=== PATIENT | female | born 1955 | race Caucasian/White ===

== ENCOUNTER → 2017-07-20 | Outpatient (CLI) | payer OTHER, BC ==
[~2017-07-20] MED LIST: ACYCLOVIR 200200 MG PO; ALLERGY25 M2 PO; ALPRAZOLAM 0.0.25 M1 PO; ASPIR 8181 M1 PO; ASPIRIN325 PO; B-121000 MCG IM; BACTRIM DS TAB1 EACH PO; BENADRYL25 MG PO; CLONAZEPAM 0.50.5 M1 PO; CLONAZEPAM 1 MG1 M1 PO; FAMCICLOVIR500 MG PO; FAMOTIDINE20 MG PO; FISH OIL 1,0001 EAC5 PO; FLEXERIL PO; FOLIC ACID1 MG PO; IBUPROFEN 600600 M1 PO; K-DUR10 ME1; K-DUR10 MEQ PO; KEPPRA 500 MG500 M1 PO; LAMOTRIGINE200 MG PO; LASIX 20 MG TAB20 MG PO; LEVOTHYROXIN0.088 MG PO; LEVOTHYROXIN0.125 M1 PO; LISINOPRIL5 MG PO; LOPRESSOR 12.12.5 MG PO; NIACIN 500 MG500 M1 PO; PERCOCET 5-3251 EACH PO; PLAVIX 75 MG TA75 M1 PO; POTASSIUM20 PO; PRILOSEC 20 MG20 MG PO; PRILOSEC40 MG PO; SERTRALINE HCL100 MG PO; TYLENOL325 MG PO; VENTOLIN HFA 1818 GM INH; VITAMIN D3400 UNI2 PO; XANAX 0.25 MG0.25 MG PO; XANAX 0.5 MG0.5 MG PO
== END ==
LOC: CAT 10:02
DX: R10.84 Generalized abdominal pain (principal)

== ENCOUNTER → 2017-09-13 | Outpatient (CLI) | payer OTHER, BC | LOC: EDSTATUS 08:37 → RAD 08:38 | DX: K44.9 Diaphragmatic hernia without obstruction or gangrene (principal) ==

== ENCOUNTER → 2019-09-14 | Outpatient (CLI) | payer OTHER, BC | LOC: RAD 11:20 | DX: M19.012 Primary osteoarthritis, left shoulder (principal) ==

== ENCOUNTER → 2020-02-07 | Outpatient (CLI) | payer OTHER, BC ==
[~2020-02-07] MED LIST changes: +DULOXETINE HCL30 MG PO; +IBUPROFEN200 M1 PO; +LEVO-T100 MCG PO
[2020-02-07 09:45] VITALS: BP 115/62
[2020-02-07 11:30] VITALS: BP 115/62; BP 117/60
--- NOTE | 2020-02-07 12:03 | NUR ---
IN FOR 1ST INJECTAFER INFUSION. STATED FEELING WELL. MAIN COMPLAINT IS FATIGUE. ADMISSION HISTORY AND ASSESSMENT COMPLETED. MEDICATIONS RECONCILED. TOLERATED INFUSION WITHOUT INCIDENT. OBSERVED FOR 30 MINUTES. POST VITAL SIGNS GOOD. REMOVED IV AND DISMISSED IN STABLE CONDITION.
== END ==
LOC: OPONC 09:08
DX: D50.9 Iron deficiency anemia, unspecified (principal)
CPT/HCPCS: 95000

== ENCOUNTER → 2020-02-14 | Outpatient (CLI) | payer OTHER, BC ==
[2020-02-14 10:30] VITALS: BP 95/53
[2020-02-14 10:46] VITALS: BP 95/57
--- NOTE | 2020-02-14 10:55 | NUR ---
PATIENT ARRIVED FOR INFUSION VIA WHEELCHAIR. ASSISTED TO TRANSFER TO THE RECLINER AND TOLERATED WELL. PIV STARTED AND INFUSION BEGAN WITHOUT DIFFICULTY.
[2020-02-14 11:00] VITALS: BP 105/50
[2020-02-14 11:15] VITALS: BP 105/50
--- NOTE | 2020-02-14 11:23 | NUR ---
RIGHT FOREARM #22 IV BECAME TENDER TO TOUCH AND UNABLE TO FLUSH. PIV REMOVED AND A NEW #24G STARTED IN THE BACK OF THE FOREARM. IV INFUSION RATE SLOWED TO 80CC/HR AT THIS TIME
[2020-02-14 12:00] VITALS: BP 100/50
--- NOTE | 2020-02-14 12:21 | NUR ---
INFUSION COMPLETE- PATIENT ASSISTED TO THE RESTROOM AND BACK
[2020-02-14 12:30] VITALS: BP 100/52
== END ==
LOC: OPONC 09:57
DX: D50.9 Iron deficiency anemia, unspecified (principal)
CPT/HCPCS: 95000

== ENCOUNTER 2020-12-26 11:28 | Emergency (ER) | payer OTHER, BC ==
[~2020-12-26] VITALS: Ht 165.1 cm; Wt 56.7 kg
--- NOTE | ~2020-12-26 | EMS ---
[facility] [address] [place] [address] EMS Patient Care Report Name: DAWSON MOSELEY Room #: PRE M.R.#: [id number] Admission: Attend Phys: Discharge: Date of : 59 Report #: [id number] THIS REPORT FOR: //name// Report Transmitted: 12/26/2020 11:19 EMS Care Summary [facility] MED-ACT Incident [id number] @ 12/26/2020 10:53 Incident Location [facility] [place] [address] Patient DAWSON MOSELEY Female, 65 Years 1955 Patient Address [address] [place] [address] Patient History Hypertension (HTN),Seizures,TIA,Neurological Condition - Other,Depression,Hypothyroidism, Patient Allergies Codeine,Morphine,Erythromycin,Tetracycline,Other drug allergy,Demerol,Valium, Patient Medications Cymbalta, Diphenhydramine, Gabapentin, Clopidogrel, Depakote, Acyclovir, Levothyroxine, Alprazolam, Cyclobenzaprine, Keppra, Chief Complaint "she had a seizure" Disposition Transported No Lights/[place] Dispatch Reason Breathing Problem Transported To [facility] Narrative Clinic reports pt had an appointment today for lab value check after they state she was supposed to be off her hypothyroid medication. Staff state when she got [facility] [address] [place] [address] EMS Patient Care Report Name: DAWSON MOSELEY Room #: PRE [facility].#: [id number] Admission: Attend Phys: Discharge: Date of : 59 Report #: [id number] out of her cab, she had a seizure in the parking lot. They were able to get her inside to an exam room and pt had another seizure. 911 was called. Staff report seizures to "not be very long." Unable to determine last seizure pt had but she reports she is taking her seizure medications. She is reporting pain to her lower back that is chronic for her. On arrival, she is supine on the exam room floor, being tended to by E32. No evidence of bitten tongue and no incontinence noted. Roll patient onto blanket and just prior to lifting, pt has an episode of stiffening of legs and arms, eyes are gazed up and to the right. This lasts approximately 20 seconds and then she able to relax. Lifted to cot, secured with straps, cot then to unit. Pt does not have a post-ictal state and is able to answer questions between these episodes. IV established. Pt then has another episode of stiffening, including not being verbally responsive. Versed given. While enroute to hospital, pt does not have any more episodes, she is very sleepy but able to arouse to voice. At hospital, moved by sheet lift to ER bed, rails placed upright, report given at bedside to RN. Initial Vitals @11:22P: 88,SpO2: 93, @11:15P: 91, @11:17P: 91,R: 16,BP: 100/63,GCS: 15,SpO2: 97,Revised Trauma: 12, @11:21P: 80,R: 16,BP: 111/67,GCS: 14,SpO2: 91,Revised Trauma: 12, @11:12P: 82,R: 18,BP: 125/69,Pain: 2/10,GCS: 15,Temp: 97.4F,Glucose: 99,SpO2: 96,Revised Trauma: 12, Assessments @11:07MENTAL:Person Oriented,SKIN:HEENT:Head/Face: No Abnormalities,Neck/Airway: No Abnormalities,LUNG SOUNDS:General: No Abnormalities,ABDOMEN:General: No Abnormalities,PELVIS//GI:EXTREMITIES:Left Arm: No Abnormalities,Right Arm: No Abnormalities,Left Leg: No Abnormalities,Right Leg: No Abnormalities,PULSE:NEURO:Seizures, Impression Seizures Procedures @11:11Midazolam - 5 Milligrams (mg) - Intravenous (IV)Response: Improved@11:09Saline Lock 10cc (24 ga) Site: Hand-RightResponse: UnchangedSucceeded@11:07ALS AssessmentResponse: UnchangedSucceeded Timeline 10:51,Call Received [address] [address] EMS Patient Care Report Name: DAWSON MOSELEY Room #: PRE M.R.#: [id number] Admission: Attend Phys: Discharge: Date of : 59 Report #: [id number] 10:51,Psap Call 10:53,Dispatched 10:53,En Route 11:02,On Scene 11:04,At Patient 11:07,ALS Assessment,Response: UnchangedSucceeded, 11:09,Saline Lock 10cc 24 ga Site: Hand-Right,Response: UnchangedSucceeded, 11:11,Midazolam - 5 Milligrams (mg) - Intravenous (IV),Response: Improved 11:12,BP: 125/69 M,PULSE: 82,RR: 18 R,SPO2: 96 Ox,ETCO2: ,B,PAIN: 2,GCS: 15, 11:15,BP: / M,PULSE: 91,RR: R,SPO2: Ox,ETCO2: ,BG: ,PAIN: ,GCS: , 11:15,Depart Scene 11:17,BP: 100/63 M,PULSE: 91,RR: 16 R,SPO2: 97 Ox,ETCO2: ,BG: ,PAIN: ,GCS: 15, 11:21,BP: 111/67 M,PULSE: 80,RR: 16 R,SPO2: 91 Ox,ETCO2: ,BG: ,PAIN: ,GCS: 14, 11:22,BP: / M,PULSE: 88,RR: R,SPO2: 93 Ox,ETCO2: ,BG: ,PAIN: ,GCS: , 11:24,At Destination 11:40,Call Closed Disclaimer v1.1 Copyright 2020 [employer] This EMS Care Summary contains data elements from the applicable legal record (which may be displayed differently). It is designed to provide pertinent information for the following purposes: continuity of care, clinical quality, and state data reporting. The complete legal record is available to ED staff and administrators of the receiving hospital in [employer]'s Patient Tracker. All data is provided "as is."
--- NOTE | ~2020-12-26 | EMS ---
[address] [address] EMS Patient Care Report Name: DAWSON MOSELEY Room #: DEP JUANITA Oneal#: [id number] Admission: 12/26/20 Attend Phys: Discharge: 12/26/20 Date of : 59 Report #: [id number] THIS REPORT FOR: //name// Report Transmitted: 12/26/2020 20:36 EMS Care Summary [facility] MED-ACT Incident [id number] @ 12/26/2020 10:53 Incident Location [facility] [place] [address] Patient DAWSON MOSELEY Female, 65 Years 1955 Patient Address [address] [place] [address] Patient History Hypertension (HTN),Seizures,TIA,Neurological Condition - Other,Depression,Hypothyroidism, Patient Allergies Codeine,Morphine,Erythromycin,Tetracycline,Other drug allergy,Demerol,Valium, Patient Medications Cymbalta, Diphenhydramine, Gabapentin, Clopidogrel, Depakote, Acyclovir, Levothyroxine, Alprazolam, Cyclobenzaprine, Keppra, Chief Complaint "she had a seizure" Disposition Transported No Lights/[place] Dispatch Reason Breathing Problem Transported To [facility] Narrative Clinic reports pt had an appointment today for lab value check after they state she was supposed to be off her hypothyroid medication. Staff state when she got [facility] [address] [place] [address] EMS Patient Care Report Name: DAWSON MOSELEY [id number] Admission: 12/26/20 Attend Phys: Discharge: 12/26/20 Date of : 59 Report #: [id number] out of her cab, she had a seizure in the parking lot. They were able to get her inside to an exam room and pt had another seizure. 911 was called. Staff report seizures to "not be very long." Unable to determine last seizure pt had but she reports she is taking her seizure medications. She is reporting pain to her lower back that is chronic for her. On arrival, she is supine on the exam room floor, being tended to by E32. No evidence of bitten tongue and no incontinence noted. Roll patient onto blanket and just prior to lifting, pt has an episode of stiffening of legs and arms, eyes are gazed up and to the right. This lasts approximately 20 seconds and then she able to relax. Lifted to cot, secured with straps, cot then to unit. Pt does not have a post-ictal state and is able to answer questions between these episodes. IV established. Pt then has another episode of stiffening, including not being verbally responsive. Versed given. While enroute to hospital, pt does not have any more episodes, she is very sleepy but able to arouse to voice. At hospital, moved by sheet lift to ER bed, rails placed upright, report given at bedside to RN. Initial Vitals @11:22P: 88,SpO2: 93, @11:15P: 91, @11:17P: 91,R: 16,BP: 100/63,GCS: 15,SpO2: 97,Revised Trauma: 12, @11:21P: 80,R: 16,BP: 111/67,GCS: 14,SpO2: 91,Revised Trauma: 12, @11:12P: 82,R: 18,BP: 125/69,Pain: 2/10,GCS: 15,Temp: 97.4F,Glucose: 99,SpO2: 96,Revised Trauma: 12, Assessments @11:07MENTAL:Person Oriented,SKIN:HEENT:Head/Face: No Abnormalities,Neck/Airway: No Abnormalities,LUNG SOUNDS:General: No Abnormalities,ABDOMEN:General: No Abnormalities,PELVIS//GI:EXTREMITIES:Left Arm: No Abnormalities,Right Arm: No Abnormalities,Left Leg: No Abnormalities,Right Leg: No Abnormalities,PULSE:NEURO:Seizures, Impression Seizures Procedures @11:11Midazolam - 5 Milligrams (mg) - Intravenous (IV)Response: Improved@11:09Saline Lock 10cc (24 ga) Site: Hand-RightResponse: UnchangedSucceeded@11:07ALS AssessmentResponse: [email or web address]@PTA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Response: Unchanged Timeline [address] [address] EMS Patient Care Report Name: DAWSON MOSELEY Room #: DEP Kimmy#: [id number] Admission: 12/26/20 Attend Phys: Discharge: 12/26/20 Date of : 59 Report #: [id number] 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,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,Response: Unchanged 10:51,Call Received 10:51,Psap Call 10:53,Dispatched 10:53,En Route 11:02,On Scene 11:04,At Patient 11:07,ALS Assessment,Response: UnchangedSucceeded, 11:09,Saline Lock 10cc 24 ga Site: Hand-Right,Response: UnchangedSucceeded, 11:11,Midazolam - 5 Milligrams (mg) - Intravenous (IV),Response: Improved 11:12,BP: 125/69 M,PULSE: 82,RR: 18 R,SPO2: 96 Ox,ETCO2: ,B,PAIN: 2,GCS: 15, 11:15,BP: / M,PULSE: 91,RR: R,SPO2: Ox,ETCO2: ,BG: ,PAIN: ,GCS: , 11:15,Depart Scene 11:17,BP: 100/63 M,PULSE: 91,RR: 16 R,SPO2: 97 Ox,ETCO2: ,BG: ,PAIN: ,GCS: 15, 11:21,BP: 111/67 M,PULSE: 80,RR: 16 R,SPO2: 91 Ox,ETCO2: ,BG: ,PAIN: ,GCS: 14, 11:22,BP: / M,PULSE: 88,RR: R,SPO2: 93 Ox,ETCO2: ,BG: ,PAIN: ,GCS: , 11:24,At Destination 11:40,Call Closed Disclaimer v1.1 Copyright 2020 [employer] This EMS Care Summary contains data elements from the applicable legal record (which may be displayed differently). It is designed to provide pertinent information for the following purposes: continuity of care, clinical quality, and state data reporting. The complete legal record is available to ED staff and administrators of the receiving hospital in [employer]'s Patient Tracker. All data is provided "as is."
--- NOTE | ~2020-12-26 | EMS ---
[address] [address] EMS Patient Care Report Name: DAWSON MOSELEY Room #: DEP JUANITA Oneal#: [id number] Admission: 12/26/20 Attend Phys: Discharge: 12/26/20 Date of : 59 Report #: [id number] THIS REPORT FOR: //name// Report Transmitted: 12/30/2020 16:49 EMS Care Summary [facility] MED-ACT Incident [id number] @ 12/26/2020 10:53 Incident Location [facility] [place] [address] Patient DAWSON MOSELEY Female, 65 Years 1955 Patient Address [address] [place] [address] Patient History Hypertension (HTN),Seizures,TIA,Neurological Condition - Other,Depression,Hypothyroidism, Patient Allergies Codeine,Morphine,Erythromycin,Tetracycline,Other drug allergy,Demerol,Valium, Patient Medications Cymbalta, Diphenhydramine, Gabapentin, Clopidogrel, Depakote, Acyclovir, Levothyroxine, Alprazolam, Cyclobenzaprine, Keppra, Chief Complaint "she had a seizure" Disposition Transported No Lights/[place] Dispatch Reason Breathing Problem Transported To [facility] Narrative Clinic reports pt had an appointment today for lab value check after they state she was supposed to be off her hypothyroid medication. Staff state when she got [facility] [address] [place] [address] EMS Patient Care Report Name: DAWSON MOSELEY [facility] [id number] Admission: 12/26/20 Attend Phys: Discharge: 12/26/20 Date of : 59 Report #: [id number] out of her cab, she had a seizure in the parking lot. They were able to get her inside to an exam room and pt had another seizure. 911 was called. Staff report seizures to "not be very long." Unable to determine last seizure pt had but she reports she is taking her seizure medications. She is reporting pain to her lower back that is chronic for her. On arrival, she is supine on the exam room floor, being tended to by E32. No evidence of bitten tongue and no incontinence noted. Roll patient onto blanket and just prior to lifting, pt has an episode of stiffening of legs and arms, eyes are gazed up and to the right. This lasts approximately 20 seconds and then she able to relax. Lifted to cot, secured with straps, cot then to unit. Pt does not have a post-ictal state and is able to answer questions between these episodes. IV established. Pt then has another episode of stiffening, including not being verbally responsive. Versed given. While enroute to hospital, pt does not have any more episodes, she is very sleepy but able to arouse to voice. At hospital, moved by sheet lift to ER bed, rails placed upright, report given at bedside to RN. Initial Vitals @11:22P: 88,SpO2: 93, @11:15P: 91, @11:17P: 91,R: 16,BP: 100/63,GCS: 15,SpO2: 97,Revised Trauma: 12, @11:21P: 80,R: 16,BP: 111/67,GCS: 14,SpO2: 91,Revised Trauma: 12, @11:12P: 82,R: 18,BP: 125/69,Pain: 2/10,GCS: 15,Temp: 97.4F,Glucose: 99,SpO2: 96,Revised Trauma: 12, Assessments @11:07MENTAL:Person Oriented,SKIN:HEENT:Head/Face: No Abnormalities,Neck/Airway: No Abnormalities,LUNG SOUNDS:General: No Abnormalities,ABDOMEN:General: No Abnormalities,PELVIS//GI:EXTREMITIES:Left Arm: No Abnormalities,Right Arm: No Abnormalities,Left Leg: No Abnormalities,Right Leg: No Abnormalities,PULSE:NEURO:Seizures, Impression Seizures Procedures @11:11Midazolam - 5 Milligrams (mg) - Intravenous (IV)Response: Improved@11:09Saline Lock 10cc (24 ga) Site: Hand-RightResponse: UnchangedSucceeded@11:07ALS AssessmentResponse: UnchangedSucceeded@PTA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Response: Unchanged Timeline [address] [address] EMS Patient Care Report Name: DAWSON MOSELEY Room #: DEP Kimmy#: [id number] Admission: 12/26/20 Attend Phys: Discharge: 12/26/20 Date of : 59 Report #: [id number] 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,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,Response: Unchanged 10:51,Call Received 10:51,Psap Call 10:53,Dispatched 10:53,En Route 11:02,On Scene 11:04,At Patient 11:07,ALS Assessment,Response: UnchangedSucceeded, 11:09,Saline Lock 10cc 24 ga Site: Hand-Right,Response: UnchangedSucceeded, 11:11,Midazolam - 5 Milligrams (mg) - Intravenous (IV),Response: Improved 11:12,BP: 125/69 M,PULSE: 82,RR: 18 R,SPO2: 96 Ox,ETCO2: ,B,PAIN: 2,GCS: 15, 11:15,BP: / M,PULSE: 91,RR: R,SPO2: Ox,ETCO2: ,BG: ,PAIN: ,GCS: , 11:15,Depart Scene 11:17,BP: 100/63 M,PULSE: 91,RR: 16 R,SPO2: 97 Ox,ETCO2: ,BG: ,PAIN: ,GCS: 15, 11:21,BP: 111/67 M,PULSE: 80,RR: 16 R,SPO2: 91 Ox,ETCO2: ,BG: ,PAIN: ,GCS: 14, 11:22,BP: / M,PULSE: 88,RR: R,SPO2: 93 Ox,ETCO2: ,BG: ,PAIN: ,GCS: , 11:24,At Destination 11:40,Call Closed Disclaimer v1.1 Copyright 2020 [employer] This EMS Care Summary contains data elements from the applicable legal record (which may be displayed differently). It is designed to provide pertinent information for the following purposes: continuity of care, clinical quality, and state data reporting. The complete legal record is available to ED staff and administrators of the receiving hospital in [employer]'s Patient Tracker. All data is provided "as is."
[2020-12-26 11:52] LABS: ABSOLUTE NEUTROPHILS 4.3 thou/uL (1.4-8.2); BASOPHILS 0.9 % (0.0-2.0); EOSINOPHILS 2.8 % (0.0-3.0); HEMATOCRIT 42.1 % (37.0-47.0); HEMOGLOBIN 13.9 gm/dL (12.0-15.0); MCH 30.2 pg (26.0-34.0); MCHC 32.9 g/dL (28.0-37.0); MCV 91.9 fL (80.0-100.0); MONOCYTES 9.1 % (1.0-8.0); PLATELET COUNT 344 thou/uL (150-400); POLYS 57.2 % (36.0-66.0); RBC 4.59 mil/uL (4.20-5.00); WBC 7.6 thou/uL (4.0-11.0)
[2020-12-26 11:58] LABS: CALCIUM 8.9 mg/dL (8.5-10.1); CREATININE 1.1 mg/dL (0.6-1.0); POTASSIUM 3.6 mmol/L (3.5-5.1)
[2020-12-26] MEDS ORDERED: FUROSEMIDE 40 M40 M1 PO (12:21)
--- NOTE | 2020-12-26 12:33 | EKG ---
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 : 1955 Requested By: Amish Flores Order Number: [id number] MD: Jeb Mancilla Measurements Intervals [place] Rate: 76 P: 33 DE: 167 QRS: -11 QRSD: 97 T: 32 QT: 388 QTc: 437 Interpretive Statements Sinus rhythm Low voltage, precordial leads Compared to ECG 09/29/2014 15:36:24 Low QRS voltage now present Left ventricular hypertrophy no longer present T-wave abnormality no longer present Electronically Signed On 12-26-2020 12:33:22 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
[2020-12-26 13:10] LABS: URINE BILIRUBIN NEGATIVE (Negative); URINE BLOOD NEGATIVE (Negative); URINE CLARITY CLEAR; URINE COLOR YELLOW; URINE GLUCOSE-RANDOM* NEGATIVE (Negative); URINE KETONES NEGATIVE (Negative); URINE LEUKOCYTES-REFLEX NEGATIVE (Negative); URINE NITRITE-REFLEX NEGATIVE (Negative); URINE PROTEIN (DIPSTICK) NEGATIVE (Negative); URINE UROBILINOGEN 0.2 E.U./dl (0.2-1.0)
[2020-12-26 15:20] VITALS: BP 118/66
== END 2020-12-26 15:20 | disposition home or self-care (01) ==
LOC: ER 11:28
PROVIDERS: Nurse Practitioner
DX: R56.9 Unspecified convulsions (principal); I10 Essential (primary) hypertension; E03.9 Hypothyroidism, unspecified; E78.5 Hyperlipidemia, unspecified; G43.909 Migraine, unspecified, not intractable, without status migrainosus; K21.9 Gastro-esophageal reflux disease without esophagitis; Z79.899 Other long term (current) drug therapy; Z88.5 Allergy status to narcotic agent; Z88.8 Allergy status to other drugs, medicaments and biological substances; Z88.1 Allergy status to other antibiotic agents; Z91.048 Other nonmedicinal substance allergy status; Z79.01 Long term (current) use of anticoagulants

== ENCOUNTER 2021-09-07 10:16 | Inpatient (IN) | payer OTHER, BC ==
[~2021-09-07] VITALS: Ht 165.1 cm; Wt 86.6 kg
--- NOTE | ~2021-09-07 | EMS ---
[facility] [address] [place] [address] EMS Patient Care Report Name: DAWSON MOSELEY Room #: PRE M.RBillie#: [id number] Admission: Attend Phys: Discharge: Date of : 59 Report #: [id number] THIS REPORT FOR: //name// Report Transmitted: 09/07/2021 09:50 EMS Care Summary [facility] MED-ACT Incident [id number] @ 09/07/2021 09:23 Incident Location [address] [place] [address] Patient DAWSON MOSELEY Female, 65 Years 1955 Patient Address [address] [place] [address] Patient History Hypertension (HTN),Seizures,TIA,Neurological Condition - Other,Depression,Hypothyroidism, Patient Allergies Codeine,Morphine,Erythromycin,Tetracycline,Other drug allergy,Demerol,Valium, Patient Medications Alprazolam, Diphenhydramine, Levothyroxine, Acyclovir, Cymbalta, Keppra, Cyclobenzaprine, Clopidogrel, Depakote, Gabapentin, Chief Complaint Vomiting, bladder pain Disposition Transported No Lights/[place] Dispatch Reason Heart Problems/AICD Transported To [facility] Narrative Pt found laying in her bed in the living room, AOx3, appearing in no obvious [facility] [address] [place] [address] EMS Patient Care Report Name: DAWSON MOSELEY Room #: PRE MBillieR.#: [id number] Admission: Attend Phys: Discharge: Date of : 59 Report #: [id number] distress. Pt's apartment was locked and had to wait for apartment management to unlock the door. Once inside the residence, two dogs were not secured and barking. S41 secured the dogs and access to the pt was made. Pt reports she has nausea and vomiting since 2100 last night. She thinks she ate bad food. Pt denies any abd pain or diarrhea. Pt reports discomfort in her bladder when she urinates. Pt denies any fever, shortness of breath, or chest pain. Vitals and assessment. Pt able to ambulate to the wheelchair and then to the cot. Secured with straps. Moved to [facility]. IV placed without infiltration in right hand. Pt reports she can't take zofran and request phenegren. Advised EMS does not have phenegren. 12 lead EKG obtained with no ST elevation. Transported to [facility] due to [facility] being on high volume. Pt remained unchanged during transport. Placed pt in ER RM with RN at side and report given. Initial Vitals @09:52P: 63, @10:10P: 113,R: 18,BP: 134/61,SpO2: 99, @09:52P: 115,R: 18,BP: 139/81, @09:57Temp: 97F, @09:42P: 112,R: 18,BP: 117/51,Pain: 0/10,GCS: 15,SpO2: 100,Revised Trauma: 12, Impression Vomiting Procedures @09:57Saline Lock 10cc (22 ga) Site: Hand-RightResponse: UnchangedSucceeded@09:59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Response: Unchanged@09:5212-Lead ECG Timeline 09:20,Call Received 09:20,Psap Call 09:23,Dispatched 09:23,En Route 09:27,On Scene 09:37,At Patient 09:42,BP: 117/51 M,PULSE: 112,RR: 18 R,SPO2: 100 Ox,ETCO2: ,BG: ,PAIN: 0,GCS: 15, 09:52,12-Lead ECG, 09:52,BP: / M,PULSE: 63,RR: R,SPO2: Ox,ETCO2: ,BG: ,PAIN: ,GCS: , 09:52,BP: 139/81 M,PULSE: 115,RR: 18 R,SPO2: Ox,ETCO2: ,BG: ,PAIN: ,GCS: , 09:57,Saline Lock 10cc 22 ga Site: Hand-Right,Response: UnchangedSucceeded, 09:57,BP: / M,PULSE: ,RR: R,SPO2: Ox,ETCO2: ,BG: ,PAIN: ,GCS: , 09:58,Depart Scene 09:59,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,Response: Unchanged 10:10,BP: 134/61 M,PULSE: 113,RR: 18 R,SPO2: 99 Ox,ETCO2: ,BG: ,PAIN: ,GCS: , [facility] [address] [place] [address] EMS Patient Care Report Name: DAWSON MOSELEY Room #: PRE M.RBillie#: [id number] Admission: Attend Phys: Discharge: Date of : 59 Report #: [id number] 10:11,At Destination 10:31,Call Closed Disclaimer v1.1 Copyright 2020 [employer] This EMS Care Summary contains data elements from the applicable legal record (which may be displayed differently). It is designed to provide pertinent information for the following purposes: continuity of care, clinical quality, and state data reporting. The complete legal record is available to ED staff and administrators of the receiving hospital in [employer]'s Patient Tracker. All data is provided "as is."
[~2021-09-07 10:16] MED LIST changes: +FUROSEMIDE 40 M40 M1 PO
[2021-09-07 10:19] VITALS: BP 178/153
[2021-09-07 10:47] LABS: ABSOLUTE NEUTROPHILS 11.9 thou/uL (1.4-8.2); BASOPHILS 0.4 % (0.0-2.0); HEMATOCRIT 33.4 % (37.0-47.0); HEMOGLOBIN 11.1 gm/dL (12.0-15.0); LYMPHOCYTES 9.6 % (24.0-44.0); MCH 29.8 pg (26.0-34.0); MCHC 33.4 g/dL (28.0-37.0); MCV 89.3 fL (80.0-100.0); MONOCYTES 4.9 % (1.0-8.0); PLATELET COUNT 378 thou/uL (150-400); POLYS 85.1 % (36.0-66.0); RBC 3.74 mil/uL (4.20-5.00); RDW 14.4 % (10.5-14.5)
[2021-09-07 11:05] LABS: CALCIUM 8.5 mg/dL (8.5-10.1); CREATININE 1.1 mg/dL (0.6-1.0)
[2021-09-07 11:11] LABS: ALBUMIN 3.1 g/dL (3.4-5.0); TOTAL BILIRUBIN 0.4 mg/dL (0.2-1.0); TOTAL PROTEIN 6.5 g/dL (6.4-8.2)
[2021-09-07 11:58] LABS: MAGNESIUM 2.4 mg/dL (1.8-2.4); PHOSPHORUS 2.8 mg/dL (2.5-4.9)
[2021-09-07 12:04] LABS: SALICYLATE < 2.8 mg/dL (2.8-20.0)
--- NOTE | 2021-09-07 12:08 | EKG ---
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
[2021-09-07 12:09] LABS: URINE BILIRUBIN NEGATIVE (Negative); URINE BLOOD NEGATIVE (Negative); URINE CLARITY CLEAR; URINE COLOR YELLOW; URINE GLUCOSE-RANDOM* NEGATIVE (Negative); URINE KETONES 1+ (Negative); URINE LEUKOCYTES-REFLEX NEGATIVE (Negative); URINE NITRITE-REFLEX NEGATIVE (Negative); URINE PROTEIN (DIPSTICK) NEGATIVE (Negative); URINE SPECIFIC GRAVITY 1.015 (1.005-1.035); URINE UROBILINOGEN 0.2 E.U./dl (0.2-1.0)
[2021-09-07 12:16] LABS: AMP/METHAMP Negative (Negative); BARBITURATES Negative (Negative); BENZODIAZEPINES POSITIVE (Negative); COCAINE Negative (Negative); METHADONE Negative (Negative); OPIATES Negative (Negative); PCP Negative (Negative)
[2021-09-07] MEDS ORDERED: ALPRAZOLAM 0.0.25 M1 PO (17:32)
[2021-09-07] MEDS ORDERED: DIVALPROEX SOD250 M3 PO (17:32)
[2021-09-07] MEDS ORDERED: DULOXETINE HCL60 MG PO (17:32)
[2021-09-07] MEDS ORDERED: FLEXERIL PO (17:33)
[2021-09-07] MEDS ORDERED: CLOPIDOGREL75 MG PO (17:33)
[2021-09-07] MEDS ORDERED: EUTHYROX137 MCG PO (17:33)
[2021-09-07] MEDS ORDERED: NEURONTIN 300M300 M2 PO (17:33)
[2021-09-07 20:47] VITALS: BP 153/73
[2021-09-07 21:06] VITALS: BP 153/73
[2021-09-07 21:39] VITALS: BP 145/62
--- NOTE | 2021-09-08 04:08 | NUR ---
pt admitted to room 218, pt is awake, alert and oriented, sr/st on tele, c/o abdominal pain, offered tyl but refused, no nausea and vomiting noted, admission assessment, education and hx completed, no needs at this time, will continue to monitor per poc
[2021-09-08 04:45] VITALS: BP 131/54
[2021-09-08 08:10] VITALS: BP 126/57
[2021-09-08 09:00] LABS: HEMATOCRIT 25.6 % (37.0-47.0); MCH 30.1 pg (26.0-34.0); MCV 91.2 fL (80.0-100.0); RBC 2.81 mil/uL (4.20-5.00); RDW 14.1 % (10.5-14.5); WBC 8.5 thou/uL (4.0-11.0)
[2021-09-08 09:01] LABS: HEMOGLOBIN 8.4 gm/dL (12.0-15.0)
[2021-09-08 09:13] LABS: CALCIUM 7.7 mg/dL (8.5-10.1); CREATININE 0.8 mg/dL (0.6-1.0); POTASSIUM 3.1 mmol/L (3.5-5.1)
[2021-09-08 11:36] VITALS: BP 139/56
[2021-09-08 15:40] VITALS: BP 129/53
--- NOTE | 2021-09-08 17:35 | NUR ---
Assumed care of pt this AM. Pt is A&O x3, confused. On RA, ST/ SR on the monitor. Pt had x4 black, tarry stools this AM. EGD showed no active bleed. Possible colonoscopy if hgb continues to drop. Pt up to toilet w/ SBA. Pt requested woo today since she is "getting IV fluids". Told pt we werent going to place woo. Gave pt purewick, but pt only used it for a couple hours. Pt requested oxygen- pt sating 100% on RA. Per PT, was asking about seizure d/o and pt started having "convulsions" for a couple seconds while having full conversation, then stopped. Pt has denied any other needs at this time.
[2021-09-09 05:11] VITALS: BP 140/56
[2021-09-09 06:26] LABS: HEMATOCRIT 24.7 % (37.0-47.0); HEMOGLOBIN 8.3 gm/dL (12.0-15.0); MCH 30.9 pg (26.0-34.0); MCHC 33.7 g/dL (28.0-37.0); MCV 91.7 fL (80.0-100.0); RBC 2.7 mil/uL (4.20-5.00); WBC 8.8 thou/uL (4.0-11.0)
[2021-09-09 06:31] LABS: MAGNESIUM 2.3 mg/dL (1.8-2.4); POTASSIUM 3.3 mmol/L (3.5-5.1)
[2021-09-09 07:36] VITALS: BP 126/69
--- NOTE | 2021-09-09 07:53 | NUR ---
alert and oriented, denies pain or soa, sr on tele, 2small bowel movements, assessments as charted, meds given as per mar, no needs, passed on report to day nurse
[2021-09-09 12:00] VITALS: BP 147/75
[2021-09-09 15:30] VITALS: BP 149/68
--- NOTE | 2021-09-09 16:17 | P ---
[facility] [place] [address] PROCEDURE REPORT Name: DAWSON MOSELEY Room #: 218-P ADM IN M.R.#: [id number] Admission: 09/07/21 Attend Phys: Juaquin Garcia MD Discharge: Date of : 59 Report #: [id number] THIS REPORT FOR: cc: Jose F Taylor MD,Maximiliano Vanegas MD, MD ~ cc: Alexei Taylor MD, Juaquin Garcia MD DATE OF SERVICE: 09/08/2021 PROCEDURE PERFORMED: Upper endoscopy with biopsies. HISTORY OF PRESENT ILLNESS: The patient is a 65-year-old female with recent nausea. She has a long history of gastroesophageal reflux disease, takes omeprazole on a daily basis. She has undergone reportedly 3 fundoplications in the past, repeat, because of failure and reflux. CT scan of the abdomen and pelvis was normal other than surgical changes noted. Last EGD, colonoscopy done in 2016. EGD showed linear gastritis, small hiatal hernia. Colonoscopy was normal. The patient does take Plavix. She also takes ibuprofen on a daily basis. Her admit hemoglobin was 11.1, it is 8.1 at this time. Stools were Hemoccult positive. Plan is for upper endoscopy. DESCRIPTION OF PROCEDURE: The risks and benefits of the procedure were explained to the patient, those risks including but not limited to bleeding, perforation and the risk of sedation. She understood these risks and gave informed consent. Sedation was given using propofol per Anesthesia. Next, using a standard Olympus upper endoscope, the scope was placed in the patient's mouth and advanced under direct vision through the esophagus, stomach and into the second portion of the duodenum. The larynx was normal in appearance. The upper esophagus was normal. In the mid and distal esophagus, grade C erosive esophagitis was noted. There appears to be a long segment of Aguilar's esophagus as well in the distal esophagus. Several biopsies were obtained. There was no evidence of bleeding. Upon entering the stomach, a small hiatal hernia was noted. There was a mild gastritis noted in the body of the stomach with several linear erosions. No evidence of bleeding. The antrum was normal. The pylorus was normal and patent. The duodenal bulb, first and second portion were all normal. The scope was then brought back up into the patient's stomach and biopsies were obtained to rule out the possibility of H. pylori. At this point, the scope was then withdrawn and the procedure terminated. The patient tolerated the procedure well. IMPRESSION: 1. Grade C erosive esophagitis. 2. 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 3. Small hiatal hernia. 4. Surgical changes of Guerda fundoplication noted, although this is relaxed. [facility] [address] [place] [address] PROCEDURE REPORT Name: DAWSON MOSELEY Room #: 218-P [facility] IN M.R.#: [id number] Admission: 09/07/21 Attend Phys: Juaquin Garcia MD Discharge: Date of : 59 Report #: [id number] 5. Gastritis with gastric erosions. RECOMMENDATIONS: 1. Continue PPI therapy. May increase to b.i.d. 2. We will add liquid Carafate at this time. 3. Await biopsy results. 4. If hemoglobin continues to drop, may need to consider repeat colonoscopy or further workup. Thank you for allowing me to participate in her care. <ELECTRONICALLY SIGNED> By: Maximiliano Palomino MD 09/09/21 1617 1342 0007 Maximiliano Palomino MD /nt
--- NOTE | 2021-09-09 16:44 | NUR ---
DR. LLOYD CHANGED THE PT'S STATUS THIS MORNING TO MED/SURG NO TELE. PT HAS BEEN PLEASANT THROUGHOUT THE SHIFT, UP SEVERAL TIMES TO THE BATHROOM WITHOUT DIFFICULTY. PT COMPLAINS OF A HEADACHE A COUPLE TIMES THIS SHIFT AND WAS TREATED WITH TYLENOL. PT STATES RELIEF WITH TYLENOL. PT DENIES ANY OTHER PAIN, N/V, OR SOA.
[2021-09-09 20:15] VITALS: BP 143/57
[2021-09-10 04:45] VITALS: BP 132/59
--- NOTE | 2021-09-10 04:52 | NUR ---
PT IS ALERT AND ORIENTED X4. LUNGS ARE CLEAR TO DIMINISHED. UP TO BATHROOM TO WITH NURSING ASSISTANCE. ABDOMEN IS ROUND BOWEL SOUNDS ACTIVE. NO NAUSEA OR VOMITING NOTED NO ABDOMEN PAIN. VOIDS CLEAR YELLOW URINE. DENIES ANY PAIN AT THIS TIME. BED ALARM ON FOR FALL RISK. PT REPORTS RECENTLY HAD SOME FALLS AT HOME.
[2021-09-10 06:05] LABS: HEMATOCRIT 23.7 % (37.0-47.0); MCHC 33.7 g/dL (28.0-37.0); MCV 91.7 fL (80.0-100.0); RBC 2.58 mil/uL (4.20-5.00); RDW 14.1 % (10.5-14.5); WBC 7.4 thou/uL (4.0-11.0)
[2021-09-10 08:30] VITALS: BP 147/65
[2021-09-10] MEDS ORDERED: PROTONIX40 M2 PO (11:59)
[2021-09-10] MEDS ORDERED: CARAFATE 11 GM/10 M1 PO (11:59)
--- NOTE | 2021-09-10 12:49 | NUR ---
met with patient who is to dc today. Patient resides in independent apt alone. She has a service dog in her apt. She does not drive. Patient to dc home with HH care. She was given HH list to review. she has no preference. She is agreeable to HH with referral to [facility] care. [facility]. Verfied address, phone number and PCP is Dr Alexei Taylor
[2021-09-10 12:52] VITALS: BP 147/65
[2021-09-10 13:12] VITALS: BP 149/62
--- NOTE | 2021-09-10 15:17 | NUR ---
DISCHARGED PT TO HOME WITH HOME HEALTH. EXPLAINED DISCHARGE INSTRUCTIONS TO PT HIGHLIGHTED APPOINTMENTS AND GAVE PT PRESCRIPTIONS. PT STATED SHE UNDERSTOOD. MOVED PT FROM CCU TO FRONT DRIVE VIA WHEELCHAIR AND ASSISTED PT INTO DAUGHTERS CAR, WITHOUT INCIDENT.
== END 2021-09-10 15:20 | disposition home health service (06) | DRG 368 ==
LOC: ER 10:16 → 2N 16:33 → EROBS 16:33 → 2N 21:10
PROVIDERS: Emergency Medicine; Nurse Practitioner Family; ADMIT Hospitalist; ATTEND Hospitalist
PROC: 0DB38ZX Excision of Lower Esophagus, Via Natural or Artificial Opening Endoscopic, Diagnostic (ICD-10-PCS; principal; 2021-09-08)
PROC: 0DB68ZX Excision of Stomach, Via Natural or Artificial Opening Endoscopic, Diagnostic (ICD-10-PCS; principal; 2021-09-08)
DX: K20.91 Esophagitis, unspecified with bleeding (principal); K25.4 Chronic or unspecified gastric ulcer with hemorrhage; N17.9 Acute kidney failure, unspecified; E46 Unspecified protein-calorie malnutrition; R65.10 Systemic inflammatory response syndrome (SIRS) of non-infectious origin without acute organ dysfunction; E87.2 Acidosis; D62 Acute posthemorrhagic anemia; A08.4 Viral intestinal infection, unspecified; D72.829 Elevated white blood cell count, unspecified; Z20.822 Contact with and (suspected) exposure to COVID-19; M06.9 Rheumatoid arthritis, unspecified; I10 Essential (primary) hypertension; M19.90 Unspecified osteoarthritis, unspecified site; F32.9 Major depressive disorder, single episode, unspecified; E78.00 Pure hypercholesterolemia, unspecified; Z96.651 Presence of right artificial knee joint; F41.9 Anxiety disorder, unspecified; K21.9 Gastro-esophageal reflux disease without esophagitis; E86.0 Dehydration; M79.7 Fibromyalgia; I95.9 Hypotension, unspecified; E86.9 Volume depletion, unspecified; K44.9 Diaphragmatic hernia without obstruction or gangrene; E03.9 Hypothyroidism, unspecified; Z66 Do not resuscitate; Z79.1 Long term (current) use of non-steroidal anti-inflammatories (NSAID); Z86.73 Personal history of transient ischemic attack (TIA), and cerebral infarction without residual deficits; Z90.710 Acquired absence of both cervix and uterus; Z88.8 Allergy status to other drugs, medicaments and biological substances; Z88.6 Allergy status to analgesic agent; Z88.1 Allergy status to other antibiotic agents; Z91.041 Radiographic dye allergy status; Z68.31 Body mass index [BMI] 31.0-31.9, adult; Z79.899 Other long term (current) drug therapy
CPT/HCPCS: 10081; 62110; 62900; 70005

== ENCOUNTER → 2021-12-23 | Outpatient (CLI) | payer OTHER, BC ==
[~2021-12-23] VITALS: Ht 165.1 cm; Wt 58.5 kg
[~2021-12-23] MED LIST changes: +CARAFATE 11 GM/10 M1 PO; +CLOPIDOGREL75 MG PO; +DIVALPROEX SOD250 M3 PO; +DIVALPROEX SOD500 MG PO; +DULOXETINE HCL60 MG PO; +EUTHYROX137 MCG PO; +LEVETIRACETAM1000 MG PO; +NEURONTIN 300M300 M2 PO; +POTASSIUM CHLO10 ME1 PO; +PROAIR HFA8.5 GM INH; +PROTONIX40 M2 PO
--- NOTE | 2021-12-24 16:06 | PATH ---
[facility] [address] [place] [address] PATHOLOGY RPT PROCEDURE Name: DAWSON MOSELEY Room #: REG KARINA Oneal#: [id number] Admission: 12/23/21 Date of : 59 Discharge: Report #: [id number] Path Case #: [id number] L[facility] Accession Number: [id number] . 01 Material submitted: . PART A: esophagus - DISTAL ESOPHAGUS BIOPSY- R/O MANZO'S. Modifiers: distal PART B: colon - RANDOM COLON BIOPSY- R/O MICROSCOPIC COLITIS . 01 Clinical history: . ESOPHAGOGASTRODUODENOSCOPY DYSPHAGIA, DIARRHEA KATHRIN ULCER, HIATAL HERNIA, NORMAL COLON . 02 Diagnosis: A. Distal esophagus biopsy, rule out Manzo's: - Manzo's esophagus. - Negative for dysplasia or malignancy. . B. Random colon, rule out microscopic colitis, biopsy: - Colonic mucosa with mild increase in intraepithelial and crypt lymphocytes, highly suggestive of lymphocytic colitis. (ANK/db; 12/24/2021) LBQ 12/24/2021 1536 Local . 02 Electronically signed: . Yue Cueto MD, Pathologist NPI- [id number] . 01 Gross description: . A. The specimen is received in formalin, labeled "Dawson Moseley, distal esophagus-rule out Manzo's". Received are 2 fragments of pale martins tissue measuring 0.2 and 0.3 cm in maximum dimension. The specimen is entirely submitted in cassette A1. . B. The specimen is received in formalin, labeled "Dawson Moseley, random colon BX-rule out microscopic colitis". Received are 2 segments of pale martins tissue measuring 0.4 and 0.5 cm in maximum dimension. The specimen is entirely submitted in cassette B1. ([facility]; 12/23/2021) NRI/NRI 12/23/2021 1911 Local . 02 Pathologist provided ICD-10: K22.70, R13.10, R19.7 . 02 CPT . 119129, [id number] [address] [address] PATHOLOGY RPT PROCEDURE Name: DAWSON MOSELEY Room #: REG [facility] Kimmy#: [id number] Admission: 12/23/21 Date of : 59 Discharge: Report #: [id number] Path Case #: [id number] Specimen Comment: A courtesy copy of this report has been sent to [phone], [phone] Specimen Comment: [phone] Specimen Comment: Report sent to / DR DIAZ Performed at: [address], [place], [place] [id number] MD Holland Bradford MD Phone: [phone] Performed at: [address] [id number] MD Yue Cueto MD Phone: [phone]
--- NOTE | 2021-12-25 11:00 | P ---
[facility] [place] [address] PROCEDURE REPORT Name: DAWSON MOSELEY [facility] [id number] Admission: 12/23/21 Attend Phys: Maximiliano Oliveros Discharge: Date of : 59 Report #: [id number] THIS REPORT FOR: cc: Jose F Taylor MD,Maximiliano Vanegas MD, MD ~ cc: Alexei Taylor MD DATE OF SERVICE: 12/23/2021 PROCEDURE PERFORMED: Upper endoscopy with biopsies and esophageal dilation. HISTORY OF PRESENT ILLNESS: The patient is a 66-year-old female who underwent an upper endoscopy by Dr. Jeffy Lozada last week for melanotic stools and anemia, was noted to have a Gail-Palomino tear, a small hiatal hernia. She has had apparently 2 fundoplications in the past. She does complain of dysphagia. She is on PPI therapy and Carafate. She is scheduled for an EGD and colonoscopy today. She does report some diarrhea and constipation as well as some continued dark stools at times. She states her last hemoglobin was approximately in the 8 range. DESCRIPTION OF PROCEDURE: The risks and benefits of the procedure were explained to the patient, those risks including but not limited to bleeding, perforation and the risk of sedation. She understood these risks and gave informed consent. Sedation was given using propofol per anesthesia. Next, using a standard Olympus upper endoscope, the scope was placed in the patient's mouth and advanced under direct vision through the esophagus, stomach and into the second portion of the duodenum. The larynx was normal in appearance. The upper esophagus was normal. In the mid and distal esophagus, a possible long segment of Aguilar's esophagus was noted. Biopsies were obtained. No evidence of esophagitis. At the GE junction, no Gail-Palomino tear was noted. No evidence of ulceration. Upon entering the stomach, there was a small hiatal hernia. Within the hernia was a single clean white based ulcer 3 mm in size, suspect this is secondary to a Anil lesion ulceration. Scope was passed through the fundoplication changes without difficulty. On retroflexion, again a small hiatal hernia with previous fundoplication surgical changes noted. Overall, the gastric mucosa was normal. The pylorus was normal and patent. The duodenal bulb, first and second portion were all normal. There was no evidence of blood throughout the exam today. The scope was then brought back up into the patient's stomach and a Savary guidewire was inserted through the scope, leaving the guidewire in place as the scope was then withdrawn. Next, a 48-Urdu Savary dilation of the esophagus was then performed without difficulty. The wire and dilator removed. The scope was reintroduced into the patient's stomach. There was no evidence of mucosal tear after dilation. The scope was then withdrawn and the procedure terminated. The patient tolerated the procedure well. [address] [address] PROCEDURE REPORT Name: DAWSON MOSELEY Room #: REG KARINA Oneal#: [id number] Admission: 12/23/21 Attend Phys: Maximiliano Oliveros Discharge: Date of : 59 Report #: [id number] IMPRESSION: 1. Possible long segment Aguilar's esophagus. 2. Small hiatal hernia. 3. Small ulceration, clean white based within the hiatal hernia consistent with Anil ulcer. No evidence of bleeding. 4. Surgical changes of fundoplication noted. RECOMMENDATIONS: 1. Await biopsy results. 2. Continue PPI therapy and Carafate. 3. Observe the patient post-dilation. 4. We will proceed with colonoscopy next today. Thank you for allowing me to participate in her care. <ELECTRONICALLY SIGNED> By: Mxaimiliano Palomino MD 12/25/21 1100 1119 0015 Maximiliano Palomino MD /nt
--- NOTE | 2021-12-25 11:00 | P ---
[facility] [place] [address] PROCEDURE REPORT Name: DAWSON MOSELEY Room #: REG [facility] [id number] Admission: 12/23/21 Attend Phys: Maximiliano Oliveros Discharge: Date of : 59 Report #: [id number] THIS REPORT FOR: cc: Jose F Taylor MD, Christopher B. MD McElhinney, Christian C. MD ~ cc: DATE OF SERVICE: 12/23/2021 PROCEDURE PERFORMED: Colonoscopy with biopsies. HISTORY OF PRESENT ILLNESS: The patient is a 66-year-old female with a recent history of anemia and melanotic stools, underwent an upper endoscopy by Dr. Ronald Lozada last week showing Gail-Palomino tear. No active bleeding. Upper endoscopy was repeated by myself today. No evidence of further Gail-Palomino tear. Plan is for colonoscopy. DESCRIPTION OF PROCEDURE: The risks and benefits of the procedure were explained to the patient, those risks including but not limited to bleeding, perforation and the risk of sedation. She understood these risks and gave informed consent. Sedation was given using propofol per anesthesia. Next, a digital rectal exam was initially performed, which was normal. Next, using a standard Olympus colonoscope, the scope was placed in the patient's anus and advanced under direct vision to the cecum. The overall prep was excellent. The cecum and ileocecal valve were normal in appearance. The ascending, transverse, descending and sigmoid colon were all normal. The rectal mucosa was normal. On retroflexion, no abnormalities were noted. The scope was then withdrawn and the procedure terminated. The patient tolerated the procedure well. During the colonoscopy, random biopsies were obtained to rule out the possibility of microscopic colitis. IMPRESSION: Normal colonoscopy. RECOMMENDATIONS: 1. Await biopsy results. 2. Repeat colonoscopy in 10 years. Thank you for allowing me to participate in her care. <ELECTRONICALLY SIGNED> By: Maximiliano Palomino MD 12/25/21 1100 1151 0015 Maximiliano Palomino MD /nt
== END | disposition home or self-care (01) ==
LOC: GI 10:05
PROVIDERS: ATTEND Specialist
DX: K92.1 Melena (principal); K63.89 Other specified diseases of intestine; R13.19 Other dysphagia; K22.70 Barrett's esophagus without dysplasia; R19.7 Diarrhea, unspecified; M79.7 Fibromyalgia; M19.90 Unspecified osteoarthritis, unspecified site; K21.9 Gastro-esophageal reflux disease without esophagitis; Z98.890 Other specified postprocedural states; Z79.899 Other long term (current) drug therapy; Z86.73 Personal history of transient ischemic attack (TIA), and cerebral infarction without residual deficits; Z85.820 Personal history of malignant melanoma of skin; Z85.828 Personal history of other malignant neoplasm of skin; Z90.710 Acquired absence of both cervix and uterus; Z90.49 Acquired absence of other specified parts of digestive tract
CPT/HCPCS: 62110; 62900

== ENCOUNTER 2021-12-27 14:46 | Emergency (ER) | payer OTHER, BC ==
[~2021-12-27] VITALS: Ht 165.1 cm; Wt 58.5 kg
--- NOTE | ~2021-12-27 | EMS ---
[address] [address] EMS Patient Care Report Name: DAWSON MOSELEY Room #: REG JUANITA Oneal#: [id number] Admission: 12/27/21 Attend Phys: Discharge: Date of : 59 Report #: [id number] THIS REPORT FOR: //name// Report Transmitted: 12/27/2021 14:20 EMS Care Summary [facility] MED-ACT Incident [id number] @ 12/27/2021 14:10 Incident Location [address] [place] [address] Patient DAWSON MOSELEY Female, 66 Years 1955 Patient Address [address] [place] [address] Patient History Chronic Obstructive Pulmonary Disease (COPD),Seizures,Stroke/CVA,TIA,Gastrointesinal Hemorrhage,Anxiety, Patient Allergies Latex allergy,Sulfa,Antibiotics allergy, Patient Medications Levothyroxine, Alprazolam, Duloxetine, Pantoprazole, Furosemide, Potassium, Divalproex Sodium, Levetiracetam, Clopidogrel, Albuterol, Gabapentin, Cyclobenzaprine, Omeprazole, Chief Complaint "coffee ground like" bowel movement Disposition Transported No Lights/[place] Reason Hemorrhage/Laceration Transported To [address] [address] EMS Patient Care Report Name: DAWSON MOSELEY Room #: REG JUANITA Onela#: [id number] Admission: 12/27/21 Attend Phys: Discharge: Date of : 59 Report #: [id number] Narrative [id number] responded to a residence for a report of bloody stool. Upon arrival we found a 66 year old female sitting in a wheel chair in the front entrance of the apartment building, OPFD was assessing her. She stated that she has had GI bleeds in the past, over the last couple of days she has had diarrhea, today it was "coffee ground like". She requested transport to [facility]. She was alert and oriented, able to answer all questions without difficulty. She denied headache but stated that she was experiencing some dizziness today upon standing. She denied chest pain or difficulty breathing, she stated that she has had some indigestion in the past. She reported some nausea but no vomiting. She has had diarrhea for 2 days, no aletha blood present. She complained of abdominal pain that is worse upon palpation, her abdomen was soft and non-distended. She was able to move her extremities as she normally does. She was able to stand with assistance, pivot and sit on the cot. She was secured with the straps and [place] [facility] Vital signs were reassessed, ECG monitored, we looked for a site to start an IV but did not make an attempt due to poor vasculature. She was transported to [facility] ED room 7. She was slid via sheet drag to the hospital bed, her care was transferred to the RN with verbal report. Her binder of health information was left with the RN in ED room 7. Initial Vitals @14:30Glucose: 92, @14:29P: 58,BP: 118/78,SpO2: 99, @14:30P: 72,R: 20,Pain: 2/10,GCS: 15,Temp: 97.2F,SpO2: 99,CO Suspected: false @14:27P: 100,R: 20,BP: 107/67,GCS: 15,SpO2: 97,Revised Trauma: 12, Impression Gastrointestinal hemorrhage Timeline 14:08,Call Received 14:08,Psap Call 14:10,Dispatched 14:11,En Route 14:18,On Scene 14:21,At Patient 14:27,BP: 107/67 M,PULSE: 100,RR: 20 R,SPO2: 97 Ox,ETCO2: ,BG: ,PAIN: ,GCS: 15, 14:29,BP: 118/78 M,PULSE: 58,RR: R,SPO2: 99 Ox,ETCO2: ,BG: ,PAIN: ,GCS: , 14:30,BP: / M,PULSE: ,RR: R,SPO2: Ox,ETCO2: ,B,PAIN: ,GCS: , 14:30,BP: / M,PULSE: 72,RR: 20 R,SPO2: 99 Ox,ETCO2: ,BG: ,PAIN: 2,GCS: 15, 14:30,Depart Scene 14:42,At Destination [facility] [address] [place] [address] EMS Patient Care Report Name: PRADIPDAWSON Room #: REG JUANITA Oneal#: [id number] Admission: 12/27/21 Attend Phys: Discharge: Date of : 59 Report #: [id number] 15:07,Call Closed Disclaimer v1.1 Copyright 2021 [email or web address] This EMS Care Summary contains data elements from the applicable legal record (which may be displayed differently). It is designed to provide pertinent information for the following purposes: continuity of care, clinical quality, and state data reporting. The complete legal record is available to ED staff and administrators of the receiving hospital in [employer]'s Patient Tracker. All data is provided "as is."
--- NOTE | ~2021-12-27 | EMS ---
[address] [address] EMS Patient Care Report Name: DAWSON MOSELEY Room #: DEP JUANITA Oneal#: [id number] Admission: 12/27/21 Attend Phys: Discharge: 12/27/21 Date of : 59 Report #: [id number] THIS REPORT FOR: //name// Report Transmitted: 12/29/2021 10:30 EMS Care Summary [facility] MED-ACT Incident [id number] @ 12/27/2021 14:10 Incident Location [address] [place] [address] Patient DAWSON MOSELEY Female, 66 Years 1955 Patient Address [address] [place] [address] Patient History Chronic Obstructive Pulmonary Disease (COPD),Seizures,Stroke/CVA,TIA,Gastrointesinal Hemorrhage,Anxiety, Patient Allergies Latex allergy,Sulfa,Antibiotics allergy, Patient Medications Levothyroxine, Alprazolam, Duloxetine, Pantoprazole, Furosemide, Potassium, Divalproex Sodium, Levetiracetam, Clopidogrel, Albuterol, Gabapentin, Cyclobenzaprine, Omeprazole, Chief Complaint "coffee ground like" bowel movement Disposition Transported No Lights/[place] Dispatch Reason Hemorrhage/Laceration Transported To [address] [address] EMS Patient Care Report Name: DAWSON MOSELEY Room #: DEP ER Kimmy#: [id number] Admission: 12/27/21 Attend Phys: Discharge: 12/27/21 Date of : 59 Report #: [id number] Narrative [id number] responded to a residence for a report of bloody stool. Upon arrival we found a 66 year old female sitting in a wheel chair in the front entrance of the apartment building, OPFD was assessing her. She stated that she has had GI bleeds in the past, over the last couple of days she has had diarrhea, today it was "coffee ground like". She requested transport to [facility]. She was alert and oriented, able to answer all questions without difficulty. She denied headache but stated that she was experiencing some dizziness today upon standing. She denied chest pain or difficulty breathing, she stated that she has had some indigestion in the past. She reported some nausea but no vomiting. She has had diarrhea for 2 days, no aletha blood present. She complained of abdominal pain that is worse upon palpation, her abdomen was soft and non-distended. She was able to move her extremities as she normally does. She was able to stand with assistance, pivot and sit on the cot. She was secured with the straps and taken to [facility]. Vital signs were reassessed, ECG monitored, we looked for a site to start an IV but did not make an attempt due to poor vasculature. She was transported to [facility] ED room 7. She was slid via sheet drag to the hospital bed, her care was transferred to the RN with verbal report. Her binder of health information was left with the RN in ED room 7. Initial Vitals @14:30Glucose: 92, @14:29P: 58,BP: 118/78,SpO2: 99, @14:30P: 72,R: 20,Pain: 2/10,GCS: 15,Temp: 97.2F,SpO2: 99,CT Suspected: false @14:27P: 100,R: 20,BP: 107/67,GCS: 15,SpO2: 97,Revised Trauma: 12, Impression Gastrointestinal hemorrhage Timeline 14:08,Call Received 14:08,Psap Call 14:10,Dispatched 14:11,En Route 14:18,On Scene 14:21,At Patient 14:27,BP: 107/67 M,PULSE: 100,RR: 20 R,SPO2: 97 Ox,ETCO2: ,BG: ,PAIN: ,GCS: 15, 14:29,BP: 118/78 M,PULSE: 58,RR: R,SPO2: 99 Ox,ETCO2: ,BG: ,PAIN: ,GCS: , 14:30,BP: / M,PULSE: ,RR: R,SPO2: Ox,ETCO2: ,B,PAIN: ,GCS: , 14:30,BP: / M,PULSE: 72,RR: 20 R,SPO2: 99 Ox,ETCO2: ,BG: ,PAIN: 2,GCS: 15, 14:30,Depart Scene 14:42,At Destination [address] [address] EMS Patient Care Report Name: PRADIPDAWSON Room #: DEP JUANITA Onela#: [id number] Admission: 12/27/21 Attend Phys: Discharge: 12/27/21 Date of : 59 Report #: [id number] 15:07,Call Closed Disclaimer v1.1 Copyright 2021 [employer] This EMS Care Summary contains data elements from the applicable legal record (which may be displayed differently). It is designed to provide pertinent information for the following purposes: continuity of care, clinical quality, and state data reporting. The complete legal record is available to ED staff and administrators of the receiving hospital in [email or web address]'s Patient Tracker. All data is provided "as is."
--- NOTE | ~2021-12-27 | EMS ---
[address] [address] EMS Patient Care Report Name: DAWSON MOSELEY Room #: REG JUANITA Oneal#: [id number] Admission: 12/27/21 Attend Phys: Discharge: Date of : 59 Report #: [id number] THIS REPORT FOR: //name// Report Transmitted: 12/27/2021 15:22 EMS Care Summary [facility] MED-ACT Incident [id number] @ 12/27/2021 14:10 Incident Location [address] [place] [address] Patient DAWSON MOSELEY Female, 66 Years 1955 Patient Address [address] [place] [address] Patient History Chronic Obstructive Pulmonary Disease (COPD),Seizures,Stroke/CVA,TIA,Gastrointesinal Hemorrhage,Anxiety, Patient Allergies Latex allergy,Sulfa,Antibiotics allergy, Patient Medications Levothyroxine, Alprazolam, Duloxetine, Pantoprazole, Furosemide, Potassium, Divalproex Sodium, Levetiracetam, Clopidogrel, Albuterol, Gabapentin, Cyclobenzaprine, Omeprazole, Chief Complaint "coffee ground like" bowel movement Disposition Transported No Lights/[place] Dispatch Reason Hemorrhage/Laceration Transported To [address] [address] EMS Patient Care Report Name: DAWSON MOSELEY Room #: REG JUANITA Oneal#: [id number] Admission: 12/27/21 Attend Phys: Discharge: Date of : 59 Report #: [id number] Narrative [id number] responded to a residence for a report of bloody stool. Upon arrival we found a 66 year old female sitting in a wheel chair in the front entrance of the apartment building, OPFD was assessing her. She stated that she has had GI bleeds in the past, over the last couple of days she has had diarrhea, today it was "coffee ground like". She requested transport to [facility]. She was alert and oriented, able to answer all questions without difficulty. She denied headache but stated that she was experiencing some dizziness today upon standing. She denied chest pain or difficulty breathing, she stated that she has had some indigestion in the past. She reported some nausea but no vomiting. She has had diarrhea for 2 days, no aletha blood present. She complained of abdominal pain that is worse upon palpation, her abdomen was soft and non-distended. She was able to move her extremities as she normally does. She was able to stand with assistance, pivot and sit on the cot. She was secured with the straps and taken to [facility]. Vital signs were reassessed, ECG monitored, we looked for a site to start an IV but did not make an attempt due to poor vasculature. She was transported to [facility] ED room 7. She was slid via sheet drag to the hospital bed, her care was transferred to the RN with verbal report. Her binder of health information was left with the RN in ED room 7. Initial Vitals @14:30Glucose: 92, @14:29P: 58,BP: 118/78,SpO2: 99, @14:30P: 72,R: 20,Pain: 2/10,GCS: 15,Temp: 97.2F,SpO2: 99,IL Suspected: false @14:27P: 100,R: 20,BP: 107/67,GCS: 15,SpO2: 97,Revised Trauma: 12, Impression Gastrointestinal hemorrhage Timeline 14:08,Call Received 14:08,Psap Call 14:10,Dispatched 14:11,En Route 14:18,On Scene 14:21,At Patient 14:27,BP: 107/67 M,PULSE: 100,RR: 20 R,SPO2: 97 Ox,ETCO2: ,BG: ,PAIN: ,GCS: 15, 14:29,BP: 118/78 M,PULSE: 58,RR: R,SPO2: 99 Ox,ETCO2: ,BG: ,PAIN: ,GCS: , 14:30,BP: / M,PULSE: ,RR: R,SPO2: Ox,ETCO2: ,B,PAIN: ,GCS: , 14:30,BP: / M,PULSE: 72,RR: 20 R,SPO2: 99 Ox,ETCO2: ,BG: ,PAIN: 2,GCS: 15, 14:30,Depart Scene 14:42,At Destination [facility] [address] [place] [address] EMS Patient Care Report Name: PRADIPDAWSON Room #: REG JUANITA Oneal#: [id number] Admission: 12/27/21 Attend Phys: Discharge: Date of : 59 Report #: [id number] 15:07,Call Closed Disclaimer v1.1 Copyright 2021 [employer] This EMS Care Summary contains data elements from the applicable legal record (which may be displayed differently). It is designed to provide pertinent information for the following purposes: continuity of care, clinical quality, and state data reporting. The complete legal record is available to ED staff and administrators of the receiving hospital in [employer] Patient Tracker. All data is provided "as is."
[~2021-12-27 14:46] MED LIST changes: -DIVALPROEX SOD500 MG PO; -LEVETIRACETAM1000 MG PO; -PROAIR HFA8.5 GM INH
[2021-12-27 16:24] LABS: ABSOLUTE NEUTROPHILS 2.8 thou/uL (1.4-8.2); BASOPHILS 0.9 % (0.0-2.0); EOSINOPHILS 1.9 % (0.0-3.0); HEMATOCRIT 31.7 % (37.0-47.0); HEMOGLOBIN 10.4 gm/dL (12.0-15.0); LYMPHOCYTES 31.1 % (24.0-44.0); MCH 26.7 pg (26.0-34.0); MCHC 32.9 g/dL (28.0-37.0); MCV 81.1 fL (80.0-100.0); MONOCYTES 17.2 % (1.0-8.0); PLATELET COUNT 385 thou/uL (150-400); POLYS 48.9 % (36.0-66.0); RBC 3.91 mil/uL (4.20-5.00); WBC 5.7 thou/uL (4.0-11.0)
[2021-12-27 17:00] LABS: ALBUMIN 3.2 g/dL (3.4-5.0); CALCIUM 8.5 mg/dL (8.5-10.1); POTASSIUM 4.1 mmol/L (3.5-5.1); TOTAL BILIRUBIN 0.2 mg/dL (0.2-1.0); TOTAL PROTEIN 7.1 g/dL (6.4-8.2)
[2021-12-27] MEDS ORDERED: PROAIR HFA8.5 GM INH ×2 (17:14→17:15)
[2021-12-27] MEDS ORDERED: LEVETIRACETAM1000 MG PO (17:18)
[2021-12-27] MEDS ORDERED: DIVALPROEX SOD500 MG PO (17:19)
[2021-12-27 17:31] LABS: URINE BILIRUBIN NEGATIVE (Negative); URINE BLOOD NEGATIVE (Negative); URINE CLARITY CLEAR; URINE COLOR YELLOW; URINE GLUCOSE-RANDOM* NEGATIVE (Negative); URINE KETONES NEGATIVE (Negative); URINE LEUKOCYTES-REFLEX TRACE (Negative); URINE NITRITE-REFLEX NEGATIVE (Negative); URINE PROTEIN (DIPSTICK) NEGATIVE (Negative); URINE UROBILINOGEN 0.2 E.U./dl (0.2-1.0)
[2021-12-27 18:34] VITALS: BP 114/57
--- NOTE | 2021-12-28 07:32 | EKG ---
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 : 1955 Requested By: Rohini Stephens Order Number: [id number] MD: Jeb Mancilla Measurements Intervals Rolla Rate: 96 P: 16 VA: 143 QRS: -24 QRSD: 90 T: 20 QT: 343 QTc: 434 Interpretive Statements Sinus rhythm Abnormal R-wave progression, late transition LVH by voltage Borderline T abnormalities, anterior leads Compared to ECG 09/07/2021 11:26:01 Left ventricular hypertrophy now present T-wave abnormality now present Sinus tachycardia no longer present Electronically Signed On 12-28-2021 7:32:42 PANTOGRAPHER by Jeb Mancilla [email or web address] <ELECTRONICALLY SIGNED> By: Jeb Mancilla MD, [facility] 12/28/21 0732 [id number] Jeb Mancilla MD, [facility] /EPI
== END 2021-12-27 19:50 | disposition home or self-care (01) ==
LOC: ER 14:46
PROVIDERS: Emergency Medicine
DX: K92.2 Gastrointestinal hemorrhage, unspecified (principal); M79.7 Fibromyalgia; K21.9 Gastro-esophageal reflux disease without esophagitis; Z88.1 Allergy status to other antibiotic agents; Z88.2 Allergy status to sulfonamides; Z88.8 Allergy status to other drugs, medicaments and biological substances; Z88.5 Allergy status to narcotic agent; Z86.73 Personal history of transient ischemic attack (TIA), and cerebral infarction without residual deficits; Z90.710 Acquired absence of both cervix and uterus; Z98.890 Other specified postprocedural states

== ENCOUNTER 2022-01-11 13:12 | Emergency (ER) | payer OTHER, BC ==
[~2022-01-11] VITALS: Ht 165.1 cm; Wt 58.5 kg
--- NOTE | ~2022-01-11 | EMS ---
[address] [address] EMS Patient Care Report Name: DAWSON MOSELEY Room #: DEP JUANITA Oneal#: [id number] Admission: 01/11/22 Attend Phys: Discharge: 01/11/22 Date of : 59 Report #: [id number] THIS REPORT FOR: //name// Report Transmitted: 01/12/2022 00:16 EMS [facility] MED-ACT Incident [id number] @ 01/11/2022 12:35 Incident Location [address] [place] [address] Patient DAWSON MOSELEY Female, 66 Years 1955 Patient Address [address] [place] [address] Patient History Chronic Obstructive Pulmonary Disease (COPD),Seizures,Stroke/CVA,TIA,Gastrointesinal Hemorrhage,Anxiety, Patient Allergies Latex allergy,Sulfa,Antibiotics allergy,Narcotic agents allergy, Patient Medications Clopidogrel, Potassium, Albuterol, Levothyroxine, Gabapentin, Omeprazole, Alprazolam, Pantoprazole, Furosemide, Cyclobenzaprine, Divalproex Sodium, Levetiracetam, Duloxetine, Chief Complaint back pain Disposition Transported No Lights/[place] Dispatch Reason Abdominal Pain/Problems Transported To [address] [address] EMS Patient Care Report Name: DAWSON MOSELEY Room #: DEP ER Kimmy#: [id number] Admission: 01/11/22 Attend Phys: Discharge: 01/11/22 Date of : 59 Report #: [id number] Narrative We were dispatched to the listed location for a code one medical call. Upon our arrival, we found the patient sitting on a wheel chair, in no obvious distress and in the care of FD. The patient was alert and oriented with a GCS of 15. The patient is a 66 year old female with a three week history of lower back pain, lower abdominal pain, dizziness and weakness. Additionally, the patient has a history of GI hemorrhage which has created the aforementioned symptoms. Today, the patient reported having a small bowel movement that was darker than usual followed by an increase in pain, weakness and dizziness. The patient denied nausea, vomiting, chest pain, dyspnea, syncope, fever or any other complaints. She requested transport to [facility] for a re-evaluation and treatment. After an assessment and vitals, the patient was assisted to the cot and secured per policy. During transport, EMS discussed pain management via Fentanyl with the patient. Due to a possible allergy to this agent, we held off on administering it. There were no changes in the patient's condition and care was transferred without incident. 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,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,Response: Unchanged TANK TERMINAL GAUGER,BP: 104/70 M,PULSE: 114,RR: 16 R,SPO2: 99 Ox,ETCO2: ,BG: ,PAIN: ,GCS: , 12:33,Call Received 12:33,Psap Call 12:35,Dispatched 12:36,En Route 12:43,On Scene 12:46,At Patient 12:47,ALS Assessment,Response: UnchangedSucceeded, [facility] [address] [place] [address] EMS Patient Care Report Name: PRADIPDAWSON Room #: DEP JUANITA Oneal#: [id number] Admission: 01/11/22 Attend Phys: Discharge: 01/11/22 Date of : 59 Report #: [id number] 12:53,BP: 132/82 M,PULSE: 100,RR: 16 R,SPO2: 99 Ox,ETCO2: ,BG: ,PAIN: 6,GCS: 15, 12:54,Depart Scene 12:59,BP: 131/80 M,PULSE: 98,RR: 16 R,SPO2: 95 Ox,ETCO2: ,BG: ,PAIN: ,GCS: , 13:07,BP: 104/70 M,PULSE: 102,RR: 16 R,SPO2: 94 Ox,ETCO2: ,BG: ,PAIN: ,GCS: , 13:08,At Destination 13:32,Call Closed Disclaimer v1.1 Copyright 2021 [employer] This EMS Care Summary contains data elements from the applicable legal record (which may be displayed differently). It is designed to provide pertinent information for the following purposes: continuity of care, clinical quality, and state data reporting. The complete legal record is available to ED staff and administrators of the receiving hospital in [employer] Patient Tracker. All data is provided "as is."
--- NOTE | ~2022-01-11 | EMS ---
[address] [address] EMS Patient Care Report Name: DAWSON MOSELEY Room #: DEP JUANITA Oneal#: [id number] Admission: 01/11/22 Attend Phys: Discharge: 01/11/22 Date of : 59 Report #: [id number] THIS REPORT FOR: //name// Report Transmitted: 01/12/2022 01:21 EMS Care Summary [facility] MED-ACT Incident [id number] @ 01/11/2022 12:35 Incident Location [address] [place] [address] Patient DAWSON MOSELEY Female, 66 Years 1955 Patient Address [address] [place] [address] Patient History Chronic Obstructive Pulmonary Disease (COPD),Seizures,Stroke/CVA,TIA,Gastrointesinal Hemorrhage,Anxiety, Patient Allergies Latex allergy,Sulfa,Antibiotics allergy,Narcotic agents allergy, Patient Medications Clopidogrel, Potassium, Albuterol, Levothyroxine, Gabapentin, Omeprazole, Alprazolam, Pantoprazole, Furosemide, Cyclobenzaprine, Divalproex Sodium, Levetiracetam, Duloxetine, Chief Complaint back pain Disposition Transported No Lights/[place] Dispatch Reason Abdominal Pain/Problems Transported To [address] [address] EMS Patient Care Report Name: DAWSON MOSELEY Room #: DEP ER Kimmy#: [id number] Admission: 01/11/22 Attend Phys: Discharge: 01/11/22 Date of : 59 Report #: [id number] Narrative We were dispatched to the listed location for a code one medical call. Upon our arrival, we found the patient sitting on a wheel chair, in no obvious distress and in the care of FD. The patient was alert and oriented with a GCS of 15. The patient is a 66 year old female with a three week history of lower back pain, lower abdominal pain, dizziness and weakness. Additionally, the patient has a history of GI hemorrhage which has created the aforementioned symptoms. Today, the patient reported having a small bowel movement that was darker than usual followed by an increase in pain, weakness and dizziness. The patient denied nausea, vomiting, chest pain, dyspnea, syncope, fever or any other complaints. She requested transport to [facility] for a re-evaluation and treatment. After an assessment and vitals, the patient was assisted to the cot and secured per policy. During transport, EMS discussed pain management via Fentanyl with the patient. Due to a possible allergy to this agent, we held off on administering it. There were no changes in the patient's condition and care was transferred without incident. 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,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,Response: Unchanged PREVENTIVE MEDICINE SPECIALIST,BP: 104/70 M,PULSE: 114,RR: 16 R,SPO2: 99 Ox,ETCO2: ,BG: ,PAIN: ,GCS: , 12:33,Call Received 12:33,Psap Call 12:35,Dispatched 12:36,En Route 12:43,On Scene 12:46,At Patient 12:47,ALS Assessment,Response: UnchangedSucceeded, [address] [address] EMS Patient Care Report Name: MOSELEYDAWSON Room #: DEP JUANITA Oneal#: [id number] Admission: 01/11/22 Attend Phys: Discharge: 01/11/22 Date of : 59 Report #: [id number] 12:53,BP: 132/82 M,PULSE: 100,RR: 16 R,SPO2: 99 Ox,ETCO2: ,BG: ,PAIN: 6,GCS: 15, 12:54,Depart Scene 12:59,BP: 131/80 M,PULSE: 98,RR: 16 R,SPO2: 95 Ox,ETCO2: ,BG: ,PAIN: ,GCS: , 13:07,BP: 104/70 M,PULSE: 102,RR: 16 R,SPO2: 94 Ox,ETCO2: ,BG: ,PAIN: ,GCS: , 13:08,At Destination 13:32,Call Closed Disclaimer v1.1 Copyright 2021 [employer] This EMS Care Summary contains data elements from the applicable legal record (which may be displayed differently). It is designed to provide pertinent information for the following purposes: continuity of care, clinical quality, and state data reporting. The complete legal record is available to ED staff and administrators of the receiving hospital in [employer]'s Patient Tracker. All data is provided "as is."
[~2022-01-11 13:12] MED LIST changes: +DIVALPROEX SOD500 MG PO; +LEVETIRACETAM1000 MG PO; +PROAIR HFA8.5 GM INH
[2022-01-11 14:31] LABS: ABSOLUTE NEUTROPHILS 5.4 thou/uL (1.4-8.2); BASOPHILS 0.6 % (0.0-2.0); HEMATOCRIT 33.7 % (37.0-47.0); HEMOGLOBIN 10.8 gm/dL (12.0-15.0); MCH 25.8 pg (26.0-34.0); MCV 80.4 fL (80.0-100.0); MONOCYTES 10.9 % (1.0-8.0); PLATELET COUNT 364 thou/uL (150-400); POLYS 58.5 % (36.0-66.0); RBC 4.19 mil/uL (4.20-5.00); RDW 17.3 % (10.5-14.5); WBC 9.2 thou/uL (4.0-11.0)
[2022-01-11 14:41] LABS: CREATININE 1.2 mg/dL (0.6-1.0); POTASSIUM 3.9 mmol/L (3.5-5.1)
[2022-01-11 14:51] LABS: ALBUMIN 3.6 g/dL (3.4-5.0); TOTAL BILIRUBIN 0.4 mg/dL (0.2-1.0); TOTAL PROTEIN 7.2 g/dL (6.4-8.2)
[2022-01-11 16:50] VITALS: BP 106/58
[2022-01-11 17:05] LABS: URINE BILIRUBIN NEGATIVE (Negative); URINE BLOOD NEGATIVE (Negative); URINE CLARITY CLEAR; URINE COLOR YELLOW; URINE GLUCOSE-RANDOM* NEGATIVE (Negative); URINE KETONES NEGATIVE (Negative); URINE LEUKOCYTES-REFLEX NEGATIVE (Negative); URINE NITRITE-REFLEX NEGATIVE (Negative); URINE PROTEIN (DIPSTICK) NEGATIVE (Negative); URINE SPECIFIC GRAVITY <= 1.005 (1.005-1.035); URINE UROBILINOGEN 0.2 E.U./dl (0.2-1.0)
--- NOTE | 2022-01-12 07:38 | EKG ---
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 01/12/22 0738 1553 1553 Jeb Mancilla MD, [facility] /EPI
== END 2022-01-11 16:50 | disposition home or self-care (01) ==
LOC: ER 13:12
PROVIDERS: Physician Assistant
DX: R10.11 Right upper quadrant pain (principal); R10.31 Right lower quadrant pain; M79.7 Fibromyalgia; K21.9 Gastro-esophageal reflux disease without esophagitis; Z95.1 Presence of aortocoronary bypass graft; Z90.89 Acquired absence of other organs; Z90.710 Acquired absence of both cervix and uterus; Z79.51 Long term (current) use of inhaled steroids; Z79.891 Long term (current) use of opiate analgesic; Z79.899 Other long term (current) drug therapy; Z88.6 Allergy status to analgesic agent; Z88.1 Allergy status to other antibiotic agents; Z91.041 Radiographic dye allergy status; Z88.5 Allergy status to narcotic agent; Z88.2 Allergy status to sulfonamides; Z88.8 Allergy status to other drugs, medicaments and biological substances; Z91.09 Other allergy status, other than to drugs and biological substances